=== PATIENT | female | born 1945 | race Caucasian/White ===

== ENCOUNTER 2016-10-04 14:50 | Emergency (ER) | payer BC, MEDICARE ==
[2016-10-04 16:05] LABS: CHLORIDE,CL 103 mEq/L (98-106); SODIUM,NA 141 mEq/L (136-145)
--- NOTE | 2016-10-04 17:46 | EDM.PDOCBH ---
ED HPI GENERAL MEDICAL PROBLEM - General Chief Complaint: ENT Problem Stated Complaint: "I think I have trench mouth" Time Seen by Provider: 10/04/16 15:06 Source of Information: Reports: Patient, Family (son) History Limitations: Reports: Altered Mental Status - History of Present Illness INITIAL COMMENTS - FREE TEXT/NARRATIVE: caron is a 70 yo female who presents to the ER by her son with concerns of worsening depression, anxiety, hallucinations and paranoia. Randolph (son) states she is unable to take care of herself anymore. Hasn't been eating or drinking and will only stay in the bedroom. States she will sleep hours upon hours every day. She keeps complaining of her mouth burning and stating she has trench mouth. She feels she has a lot of problems and doesn't trust anymore. Admits to hearing voices. States she will not leave her house as she is scared. States she doesn't sleep as well. Admits to feeling her life is over and just wants to . Admits to suicidal thoughts but has never attempted to harm herself. Has underwent recent inpatient treatment at [facility] on September. She was started on Seroquel and Vistaril which she declines to take. Onset: Unknown/Unsure Location: Reports: Generalized Oral/Mouth Pain Score (Numeric/FACES): 8 - Related Data Allergies Allergy/AdvReac Type Severity Reaction Status Date / Time iodine Allergy Chest Verified 10/04/16 15:21 Tightness shellfish derived Allergy Chest Verified 10/04/16 15:21 Tightness Sulfa (Sulfonamide Allergy Chest Verified 10/04/16 15:21 Antibiotics) Tightness Home Meds: Home Meds . [Unable to Verify Home Med List] 10/04/16 [History] Past Medical History Cardiovascular History: Reports: None Respiratory History: Reports: None Gastrointestinal History: Reports: None Psychiatric History: Reports: Anxiety, Depression, Panic Attack, Psych Hospitalization(s), Psychosis, Suicidal Ideation - Past Surgical History Female Surgical History: Reports: Section Social & Family History - Family History Family Medical History: Noncontributory - Tobacco Use Smoking Status *Q: Never Smoker - Caffeine Use Caffeine Use: Reports: None - Recreational Drug Use Recreational Drug Use: No ED ROS GENERAL - Review of Systems Review Of Systems: See Below Constitutional: Reports: Decreased Appetite, Weight Loss HEENT: Reports: No Symptoms Respiratory: Reports: No Symptoms Cardiovascular: Reports: No Symptoms GI/Abdominal: Reports: No Symptoms Musculoskeletal: Reports: No Symptoms Skin: Reports: No Symptoms Neurological: Reports: Confusion. Denies: Difficulty Walking, Weakness, Change in Speech, Gait Disturbance Psychiatric: Reports: Anxiety, Depression, Hallucinations, Suicidal Ideation ED EXAM, BEHAVIORAL HEALTH - Physical Exam Exam: See Below Exam Limited By: Altered Mental Status General Appearance: Anxious, Mild Distress Eye Exam: Bilateral Eye: EOMI, PERRL Ears: Normal External Exam, Normal Canal, Hearing Grossly Normal, Normal TMs Nose: Normal Inspection, Normal Mucosa, No Blood Throat/Mouth: Normal Inspection, Normal Lips, Normal Teeth, Normal Gums, Normal Oropharynx, Normal Voice, No Airway Compromise. No: Inflammation, Perioral Cyanosis Head: Atraumatic, Normocephalic Neck: Normal Inspection, Supple Respiratory/Chest: No Respiratory Distress, Lungs Clear, Normal Breath Sounds Cardiovascular: Normal Peripheral Pulses, Regular Rate, Rhythm, No Edema, No Murmur GI/Abdominal: Normal Bowel Sounds, Soft, Non-Tender, No Organomegaly Neurological: Alert, CN II-XII Intact, Normal Cognition, Normal Gait, No Motor/ Sensory Deficits, Oriented x 3 Psychiatric: Flight of Ideas, Phobic, Suicidal Thoughts, Auditory Hallucinations , Paranoid Thoughts Skin Exam: Warm, Dry, Intact, Normal color, No rash COURSE, BEHAVIORAL HEALTH COMP - Course Vital Signs: Last Vital Signs Temp Pulse 89 10/04/16 15:01 Resp 20 10/04/16 15:01 BP 119/52 L 10/04/16 15:01 Pulse Ox 92 L 10/04/16 15:01 Orders, Labs, Meds: Active Orders 24 hr Category Date Time Status CULTURE URINE [RM] Stat Lab 10/04/16 16:09 Received Laboratory Tests 10/04/16 10/04/16 10/04/16 Range/Units 15:55 15:55 16:09 WBC 7.2 (5.0-10.0) 10^3/uL RBC 4.66 (4.00-5.50) 10^6/uL Hgb 16.0 (12.0-16.0) g/dL Hct 45.8 (37.0-47.0) % MCV 98.3 H (82.0-94.0) fL MCH 34.3 H (27.0-32.0) pg MCHC 34.9 (33.0-38.0) g/dL RDW Coeff of Mireille 11.8 (11.0-15.0) % Plt Count 183 (150-400) 10^3/uL Neut % (Auto) 59.2 (35-85) % Lymph % (Auto) 28.0 (10-55) % Appling % (Auto) 12.0 (0-16) % Eos % (Auto) 0.7 (0-5) % Baso % (Auto) 0.1 (0-3) % Neut # (Auto) 4.26 (1.80-7.00) 10^3/uL Lymph # (Auto) 2.01 (1.00-4.80) 10^3/uL Appling # (Auto) 0.86 H (0.00-0.80) 10^3/uL Eos # (Auto) 0.05 (0.00-0.45) 10^3/uL Baso # (Auto) 0.01 10^3/uL Sodium 141 (136-145) mEq/L Potassium 4.6 (3.5-5.0) mEq/L Chloride 103 (98-106) mEq/L Carbon Dioxide 28 (21-32) mmol/L BUN 27 H (7-18) mg/dL Creatinine 0.9 (0.6-1.0) mg/dL Est Cr Clr Drug Dosing TNP Estimated GFR (MDRD) > 60 (>=60) mL/min Glucose 111 H (75-99) mg/dL Calcium 10.9 H (8.4-10.1) mg/dL Urine Color (YELLOW) Urine Appearance (CLEAR) Urine pH (4.5-8.0) Ur Specific Dighton (1.003-1.020) Urine Protein (NEGATIVE) mg/dL Urine Glucose (UA) (NEGATIVE) mg/dL Urine Ketones (NEGATIVE) mg/dL Urine Occult Blood (NEGATIVE) Urine Nitrite (NEGATIVE) Urine Bilirubin (NEGATIVE) Urine Urobilinogen (0.2-1.0) EU/dL Ur Leukocyte Esterase (NEGATIVE) Urine RBC (0-5) /HPF Urine WBC (0-5) /HPF Ur Epithelial Cells (NOT SEEN) /HPF Urine Bacteria (NOT SEEN) /HPF Hyaline Casts (NOT SEEN) /LPF Urinalysis Comment Urine Opiates Screen Negative (NEGATIVE) Ur Oxycodone Screen Negative (NEGATIVE) Urine Methadone Screen Negative (NEGATIVE) Ur Barbiturates Screen Negative (NEGATIVE) U Tricyclic Antidepress Negative (NEGATIVE) Ur Phencyclidine Scrn Negative (NEGATIVE) Ur Amphetamine Screen Negative (NEGATIVE) U Methamphetamines Scrn Negative (NEGATIVE) Urine MDMA Screen Negative (NEGATIVE) U Benzodiazepines Scrn Negative (NEGATIVE) Urine Cocaine Screen Negative (NEGATIVE) U Marijuana (THC) Screen Negative (NEGATIVE) 10/04/16 Range/Units 16:09 WBC (5.0-10.0) 10^3/uL RBC (4.00-5.50) 10^6/uL Hgb (12.0-16.0) g/dL Hct (37.0-47.0) % MCV (82.0-94.0) fL MCH (27.0-32.0) pg MCHC (33.0-38.0) g/dL RDW Coeff of Mireille (11.0-15.0) % Plt Count (150-400) 10^3/uL Neut % (Auto) (35-85) % Lymph % (Auto) (10-55) % Appling % (Auto) (0-16) % Eos % (Auto) (0-5) % Baso % (Auto) (0-3) % Neut # (Auto) (1.80-7.00) 10^3/uL Lymph # (Auto) (1.00-4.80) 10^3/uL Appling # (Auto) (0.00-0.80) 10^3/uL Eos # (Auto) (0.00-0.45) 10^3/uL Baso # (Auto) 10^3/uL Sodium (136-145) mEq/L Potassium (3.5-5.0) mEq/L Chloride (98-106) mEq/L Carbon Dioxide (21-32) mmol/L BUN (7-18) mg/dL Creatinine (0.6-1.0) mg/dL Est Cr Clr Drug Dosing Estimated GFR (MDRD) (>=60) mL/min Glucose (75-99) mg/dL Calcium (8.4-10.1) mg/dL Urine Color Straw (YELLOW) Urine Appearance Cloudy (CLEAR) Urine pH 5.5 (4.5-8.0) Ur Specific Dighton 1.027 H (1.003-1.020) Urine Protein 30 H (NEGATIVE) mg/dL Urine Glucose (UA) Negative (NEGATIVE) mg/dL Urine Ketones 15 H (NEGATIVE) mg/dL Urine Occult Blood Small H (NEGATIVE) Urine Nitrite Negative (NEGATIVE) Urine Bilirubin Small H (NEGATIVE) Urine Urobilinogen 0.2 (0.2-1.0) EU/dL Ur Leukocyte Esterase Small H (NEGATIVE) Urine RBC 10-20 H (0-5) /HPF Urine WBC 75-100 H (0-5) /HPF Ur Epithelial Cells Few H (NOT SEEN) /HPF Urine Bacteria Many H (NOT SEEN) /HPF Hyaline Casts Few H (NOT SEEN) /LPF Urinalysis Comment See note Urine Opiates Screen (NEGATIVE) Ur Oxycodone Screen (NEGATIVE) Urine Methadone Screen (NEGATIVE) Ur Barbiturates Screen (NEGATIVE) U Tricyclic Antidepress (NEGATIVE) Ur Phencyclidine Scrn (NEGATIVE) Ur Amphetamine Screen (NEGATIVE) U Methamphetamines Scrn (NEGATIVE) Urine MDMA Screen (NEGATIVE) U Benzodiazepines Scrn (NEGATIVE) Urine Cocaine Screen (NEGATIVE) U Marijuana (THC) Screen (NEGATIVE) Departure - Departure Time of Disposition: 17:45 Disposition: DC/Tfer to Acute Hospital 02 Condition: Undetermined Clinical Impression: Paranoia, Hallucinations Psychosis Qualifiers: Psychosis type: unspecified psychosis type Qualified Code(s): F29 - Unspecified psychosis not due to a substance or known physiological condition UTI (urinary tract infection) Qualifiers: Urinary tract infection type: acute cystitis Hematuria presence: with hematuria Qualified Code(s): N30.01 - Acute cystitis with hematuria - Discharge Information Forms: ED Department Discharge - Problem List & Annotations (1) Hallucinations SNOMED Code(s): 2761631 Code(s): R44.3 - HALLUCINATIONS, UNSPECIFIED Status: Acute Current Visit : Yes (2) Paranoia SNOMED Code(s): 122132469 Code(s): F22 - DELUSIONAL DISORDERS Status: Acute Current Visit: Yes (3) Psychosis SNOMED Code(s): 55730278 Code(s): F29 - UNSP PSYCHOSIS NOT DUE TO A SUBSTANCE OR KNOWN PHYSIOL COND Status: Acute Current Visit: Yes Qualifiers: Psychosis type: unspecified psychosis type Qualified Code(s): F29 - Unspecified psychosis not due to a substance or known physiological condition (4) UTI (urinary tract infection) SNOMED Code(s): 81854508 Code(s): N39.0 - URINARY TRACT INFECTION, SITE NOT SPECIFIED Status: Acute Current Visit: Yes Qualifiers: Urinary tract infection type: acute cystitis Hematuria presence: with hematuria Qualified Code(s): N30.01 - Acute cystitis with hematuria - Problem List Review Problem List Initiated/Reviewed/Updated: Yes - My Orders Last 24 Hours: My Active Orders 10/04/16 16:09 CULTURE URINE [RM] Stat - Assessment/Plan Last 24 Hours: My Active Orders 10/04/16 16:09 CULTURE URINE [RM] Stat Plan: 2 hours spent in consultation with patient and her son. Discussed inpatient treatment and consulted with Dr. Lantigua, Psychiatrist, at [facility] in [place]. Complete history given and he willingly accepted transfer at this time. D/t patient condition (suicidal thoughts) and unable to get ahold of her son it was determined she be transferred via BLS services. Risks and benefits discussed with Caron in regards to inpatient services at [facility]. Risks of transfer discussed with Caron included worsening of condition and MVA. Benefits of transfer included specialty psychiatric care and interventions not provided at this local facility. Caron would not sign transfer form d/t paranoia but willingly got onto cart to be transferred. Patient showed a UTI on urinalysis. Culture is currently pending. No medications were given as she did not want to take any at this time.
== END 2016-10-04 18:00 ==
LOC: CC.ED 14:50
DX: F22 Delusional disorders (principal); N30.01 Acute cystitis with hematuria; F41.0 Panic disorder [episodic paroxysmal anxiety]; F32.9 Major depressive disorder, single episode, unspecified; Z88.5 Allergy status to narcotic agent; Z91.013 Allergy to seafood; Z88.2 Allergy status to sulfonamides
CPT/HCPCS: 36415; 80048; 80305; 81001; 85025; 87086; 87186; 99285